=== PATIENT | male | born 1985 | race Caucasian/White ===

== ENCOUNTER 2018-10-19 06:05 | Inpatient (IN) | payer BC, OTHER ==
[2018-10-19] VITALS (33 sets, daily range): BP systolic 97–173; BP diastolic 50–94; PULSE 63–114; RESP 12–29; Ht 165.1 cm; Wt 53.7 kg
[~2018-10-19] VITALS: Ht 165.1 cm; Wt 53.7 kg
[2018-10-19] MEDS ORDERED: THROMBIN (BOVINE) 5,000 UNIT VIAL TP ONE ×3 (06:47→11:08)
[2018-10-19] MEDS ORDERED: BUPIVACAINE 0.5% (SDV) 30 ML INJ ONE (06:47)
[2018-10-19] MEDS ORDERED: LIDOCAINE 1% (MPF) 30 ML INJ ONE (06:47)
[2018-10-19] MEDS ORDERED: GELATIN SIZE 100 SPONGE ONE (06:47)
[2018-10-19] MEDS ORDERED: POLYMYXIN/BACITRACIN 1L IRRIG ONE (06:52)
[2018-10-19] MEDS ORDERED: LIDOCAINE 1%/EPI (1:100,000) (MDV) 20 ML ONE (06:52)
--- NOTE | 2018-10-19 07:18 | PREAC ---
Date/Time of Note Date/Time of Note DATE: 10/19/18 TIME: 07:16 Anesthesia Eval and Record Evaluation Time Pre-Procedure Interview DATE: 10/19/18 TIME: 07:16 Age 33 Sex male NPO: 8 hrs Preoperative diagnosis cervical DDD Planned procedure C3-7 ACDF Past Medical History Past Medical History: Includes GI: Hiatal hernia Recreational drugs: Marijuana (daily use), Other (Home pain meds) Surgery & Anesthesia Issues No known issue Meds Anticoagulation: No Beta Ruma within 24 hr: No Reason Beta Ruma not given: Pt. not on B-Ruma Meds reviewed: Yes Allergies Coded Allergies: tramadol (Verified Allergy, Severe, 10/15/18) pt had sz Sulfa (Sulfonamide Antibiotics) (Verified Allergy, Unknown, 10/15/18) prochlorperazine (Verified Allergy, Unknown, 10/15/18) Allergies Reviewed: Yes Labs/Studies Labs Reviewed: Reviewed by anesthesiologist test: N/A Pre-procedure Exam Last vitals Vital Signs Date Temp Pulse Resp B/P (MAP) Pulse Ox O2 O2 Flow FiO2 Time Delivery Rate 10/19/18 98.5 83 18 113/64 100 06:55 (80) Airway: Adequate mouth opening, Adequate thyromental dist Mallampati: Mallampati II Teeth: Normal Lung: Normal Heart: Normal ASA Physical Status ASA physical status: 3 Emergency: None Planned Anesthetic General/MAC: ETT, A Line Pre-operative Attestations Prior to commencing anesthesia and surgery, the patient was re-evaluated, there was verification of: *The patient's identity *The results of appropriate recent lab work and preoperative vital signs *The above evaluation not changing prior to induction *Anesthetic plan, risk benefits, alternative and complications discussed with patient/family; questions answered; patient/family understands, accepts and wishes to proceed. DEX MÁRQUEZ October 19, 2018 07:18
[2018-10-19] MEDS ORDERED: METOCLOPRAMIDE 10 MG INJ IV PRN (07:30)
[2018-10-19] MEDS ORDERED: ALBUTEROL 0.083% (NEB) 2.5 MG/3 ML AMP HHN PRN (07:30)
[2018-10-19] MEDS ORDERED: ONDANSETRON 4 MG INJ IV PRN ×2 (07:30→14:30)
[2018-10-19] MEDS ORDERED: MEPERIDINE 25 MG INJ IV PRN (07:30)
[2018-10-19] MEDS ORDERED: DESFLURANE 15 MIN ONE (07:30)
[2018-10-19] MEDS ORDERED: FENTAnyl 50 MCG/ML VIAL IV PRN ×2 (07:30)
[2018-10-19] MEDS ORDERED: HYDROmorphONE 1 MG/5 ML IV SYRINGE IV PRN (07:30)
[2018-10-19] MEDS ORDERED: DIPHENHYDRAMINE 50 MG INJ IV PRN (07:30)
[2018-10-19] MEDS ORDERED: MIDAZOLAM 1 MG/ML 2 ML INJ ONE (07:40)
[2018-10-19] MEDS ORDERED: FENTAnyl 50 MCG/ML VIAL ONE ×5 (07:47→13:52)
[2018-10-19] MEDS ORDERED: DEXAMETHASONE 4 MG/ML 5 ML INJ ONE (08:28)
[2018-10-19] MEDS ORDERED: PROPOFOL 20 ML ONE (08:53)
[2018-10-19] MEDS ORDERED: CEFAZOLIN 1 GM INJ ONE ×3 (08:53→12:15)
[2018-10-19] MEDS ORDERED: SUCCINYLCHOLINE CHLORIDE 100 MG/5 ML SYG IV ONE (08:53)
[2018-10-19] MEDS ORDERED: LIDOCAINE 100 MG SYRINGE ONE (08:53)
[2018-10-19] MEDS ORDERED: ROCURONIUM 50 MG INJ ONE (08:53)
[2018-10-19] MEDS ORDERED: SUGAMMADEX SODIUM 200 MG/2 ML VIAL IV ONE (13:34)
[2018-10-19] MEDS: HYDROmorphONE 1 MG/5 ML IV SYRINGE IV PRN ×4 (14:01→14:17)
[2018-10-19] MEDS ORDERED: D5W-0.45 NACL + KCL 20 MEQ 1,000 ML IV SCH (14:11)
[2018-10-19] MEDS ORDERED: BISACODYL 10 MG SUPP PR PRN (14:30)
[2018-10-19] MEDS ORDERED: oxyCODONE 5 MG TAB PO PRN (14:30)
[2018-10-19] MEDS ORDERED: CEFAZOLIN 1 GM/50 ML (PMX) 50 ML IVPB SCH (14:30)
[2018-10-19] MEDS ORDERED: NALOXONE (0.4 MG/ML) INJ IV PRN (14:30)
[2018-10-19] MEDS ORDERED: HYDROmorphONE 1 MG/ML SYG IV ONE (14:30)
[2018-10-19] MEDS: FENTAnyl 50 MCG/ML VIAL IV PRN ×4 (14:42→15:58)
--- NOTE | 2018-10-19 14:54 | OPR ---
Date/Time of Note Date/Time of Note DATE: 10/19/18 TIME: 14:53 Operative Report Procedure Date: October 19, 2018 Preoperative Diagnosis Please see below. Postoperative Diagnosis Please see below. Operation/Procedure Performed Please see below. Surgeon see signature line Artificial Cherry Maker None Anesthesia Type: general Estimated Blood Loss: 10 - 50 ml's (50 cc) Transfusion none Specimen None Grafts/Implants Please see below. Tubes/Drains Please see below. Complications none Pt Condition Post Procedure: stable Disposition: PACU Procedure Description Date of operation: 10/19/2018 Preoperative diagnosis: 1. C4-5, C5-6, C6-7 bilateral foraminal stenosis 2. C4-5, C5-6, C6-7 degenerative disc disease Postoperative diagnosis: 1. C4-5, C5-6, C6-7 bilateral foraminal stenosis 2. C4-5, C5-6, C6-7 degenerative disc disease Operating surgeon: Leida Russell M.D. Procedures performed: 1. C4-5, C5-6, C6-7 anterior cervical discectomy and decompression 2. Placement of intervertebral cages at C4-5, C5-6 and C6-7 levels (Nexxt Spine lordotic titanium 6 mm height cages) 3. C4-C7 anterior instrumentation (Depuy static plate with 14 and 16 mm length screws) 4. C4-C7 anterior arthrodesis 5. Morselized local autologous bone graft harvest 6. Morselized allograft placement (demineralized bone matrix putty) 7. Intraoperative fluoroscopy with professional interpretation 8. Intraoperative microscope with microdissection 9. Intraoperative neurophysiologic monitoring including SSEP, MEP and EMG Indication for procedure: This is a 33-year-old right-handed male with long- standing history of severe axial neck pain and rigidity as well as lateral upper extremity radiating pain and numbness greater on the left than the right in the C5, C6 and C7 distribution. The patient has undergone extensive conservative management including physical therapy as well as pain management. The patient is currently on heavy duty pain medications including [place], Soma and Neurontin without significant improvement of his pain symptomatology. The patient denies gross loss of balance or decreased dexterity of his upper or lower extremities. The risks and benefits of the above operation were again explained and weight detail to the patient, his mother and his daughter who are at bedside in the preoperative area. The patient understands that given his history of heavy duty narcotic medication use, his postoperative pain will be quite challenging and will require further pain medications. The patient will need to follow-up with his pain management physician postoperatively as well. He also understands that even with the above operation his pain symptomatology may still not improve. The risks and benefits of the above operation were also explained again in detail to the patient and his family with the risks including bleeding, infection, weakness, numbness, paralysis, cerebrospinal fluid leak, bowel or bladder dysfunction, dysphagia, hoarseness, injury to the surrounding tissues, failure of improvement of his symptoms are worsening of his symptoms, need for further surgeries including revision of his decompression, instrumented fusion or need for extension of his decompression and instrumented fusion, as well as those risks associated with surgery and general anesthesia including pneumonia, deep venous thrombosis, pulmonary embolism, heart attack and stroke and . The patient and his family fully understood the above discussion and wished to proceed with the above surgery. Description of operative procedure: The patient was brought to the operating room and placed supine on the operating table. After general anesthesia was obtained, roll was placed underneath the patient's shoulders making his neck slightly lordotic. His arms were then tucked by his side and all pressure points were noted and padded appropriately. His shoulders were then taped down. The midline anterior neck was marked. Linear incision approximately at the C5-C6 level was marked over the right anterior cervical region from the mid sternocleidomastoid muscle to midline. After the skin was prepped and draped under standard sterile fashion, local anesthetics were infiltrated into the marked incision. The skin was then incised down to the level of the platysma muscle. The platysma muscle was then sharply opened. The platysmal muscle was then undermined superiorly and inferiorly. The plane medial to the sternocleidomastoid muscle was further developed and dissection was carried down to the precervical fascia. The C5-C6 disc space was then located under direct lateral fluoroscopy and confirmed. The medial borders of the longus coli muscle were undermined. Self-retaining retractors were placed inside. Elizabeth pins were placed at the C5 and C6 vertebral bodies under direct lateral fluoroscopy. The disc space was then gently distracted. The operative microscope was brought into the field. The bilateral uncovertebral joints at C5-C6 were then located. The annulus was then cut open completely. The discectomy was performed. The endplates were fully decorticated. Using a high-speed drill, Kerrison rongeurs and curettes, calcified posterior longitudinal ligament was fully drilled down and removed. The dura was then exposed. The decompression was carried out laterally to the uncovertebral joints bilaterally and the neuroforamina were fully decompressed. The proximal bilateral C6 nerve roots were exposed and fully decompressed. The Microsect curettes were used to probe the plane underneath the superior and inferior C5 and C6 vertebral bodies to make sure that there was no pressure in the spinal canal. Hemostasis was obtained. Using various size trials for the cage, we decided to use a 6 mm lordotic titanium cage. A combination of the locally harvested morselized allograft from the anterior osteophyte and demineralized bone matrix allograft putty was then packed inside the cage. This was then placed in the disc space and countersunk under direct lateral fluoroscopy. The same set of procedures were done in order to access the C6-7 and C4-5 levels 1 level out of time using Elizabeth pins. The Elizabeth pin sites were then waxed after each of the pins were removed. The C4-5 and C6-7 central canal and bilateral neuroforaminal were fully decompressed and the proximal C5 and C7 exiting nerve roots were exposed bilaterally. The endplates were decorticated in a similar fashion to the C5-C6 level. And after using the various trial cages, we decided to use a 6 mm height lordotic titanium cage packed with the same combination of biologic material at these 2 levels as well. The lateral x-ray showed excellent distraction of the disc heights and hoahaoism of the patient's cervical lordosis. The proper sized static anterior plate was then measured under direct lateral fluoroscopy and was then bent to a lordotic shape. The plate was then inserted and using a hand-held drill, ems helicopter pilot holes for the anterior screws was drilled into the each of the vertebral bodies. 14 mm self drilling screws were inserted from C4-C7 under direct lateral fluoroscopy. At 3 of the screw sites, in order to achieve better bony purchase, we decided to exchange the screws with rescue screws that gave us excellent bony purchase. By fully tightening the screws from top to bottom in a serial fashion, we were able to lag the screws onto the plates allowing us to further restore the patient's cervical lordosis under direct lateral fluoroscopy. The locking mechanism at each of the levels over each of the screw heads was then engaged. A final AP and lateral x-ray showed good positioning of the anterior hardware. The wound was copiously irrigated with antibiotic solution. Complete hemostasis was obtained. Size 10 flat drain was inserted in the pretracheal space and the other end of it was brought out of the skin away from the incision site. The platysmal layer was reapproximated with interrupted sutures. The dermal layer was reapproximated with interrupted sutures. The skin was approximated with Dermabond. The drain was secured to the skin with a suture and was connected to a MARCOS bulb and activated. The patient was then woken up, extubated and transported to the recovery room in stable condition. The rigid cervical collar was placed around the patient's neck. Intraoperative neurophysiologic signals were stable throughout the procedure. The patient was moving his upper and lower extremities spontaneously in the recovery room. Estimated blood loss: 50cc Blood products administered: None Packs/drains: Size 10/drain Specimen removed: None Patient's condition: Stable Prognosis: Good Wound classification: Clean Type of anesthesia: General LEIDA RUSSELL MD October 19, 2018 14:54
--- NOTE | 2018-10-19 15:43 | HP ---
Date/Time of Note Date/Time of Note DATE: 10/19/18 TIME: 15:43 Assessment/Plan VTE Prophylaxis Risk score (from Nsg)>0 risk: 5 SCD applied (from Nsg): Yes Pharmacological prophylaxis: other Lines/Catheters IV Catheter Type (from Nrsg): A Line Assessment/Plan Hospital Course Assessment and plan: 30-year-old male status post cervical discectomy and decompression, performed secondary to C-spine pain and disc herniation. #C-spine neck pain: Again secondary to cervical disc herniation, status post C4- 5, C5-6, C6-7 anterior cervical discectomy and decompression. Again patient to see spine collar in place. -Continue physical therapy and pain management per neurosurgery team -We are calling physical therapy as well to see if patient get a better fitting C-spine collar in place. #Marijuana use: Monitor for signs of withdrawal, counseled on cessation # GI ppx -Protonix HPI/ROS Admit Date/Time Admit Date/Time October 19, 2018 at 06:05 Hx of Present Illness 33-year-old male with past medical history of multiple surgeries of his left shoulder, elbow, appendicitis, and prolonged C-spine neck pain with herniated disc,who was brought in for elective surgical procedure of his C-spine. Patient earlier today underwent C4-5, C5-6, C6-7 anterior cervical discectomy and decompression. He presently has a C-spine neck collar in place to help with stabilization. Denies any upper or lower GI bleeding, nausea vomiting, fever chills, diarrhea constipation. He is complaining of some neck pain and appears to be anxious and at times wanting to get out of bed, but is awake and alert. PMH/Family/Social Past Medical History Medications Current Medications Hydromorphone HCl (Dilaudid) 0.2 mg PACU PRN IV MILD PAIN 1-3; Start 10/19/18 at 07:30; Stop 10/19/18 at 17:00 Hydromorphone HCl (Dilaudid) 0.4 mg PACU PRN IV MOD PAIN 4-6 Last administered on 10/19/18at 14:17; Admin Dose 0.4 MG; Start 10/19/18 at 07:30; Stop 10/19/18 at 17:00 Hydromorphone HCl (Dilaudid) 0.6 mg PACU PRN IV SEVERE PAIN 7-10 Last administered on 10/19/18at 14:12; Admin Dose 0.6 MG; Start 10/19/18 at 07:30; Stop 10/19/18 at 17:00 Fentanyl (Sublimaze) 25 mcg PACU ORDER PRN IV MILD PAIN 1-3 Last administered on 10/19/18at 14:47; Admin Dose 25 MCG; Start 10/19/18 at 07:30; Stop 10/19/18 at 17:00 Fentanyl (Sublimaze) 50 mcg PACU ORDER PRN IV MOD PAIN 4-6; Start 10/19/18 at 07:30; Stop 10/19/18 at 17:00 Fentanyl (Sublimaze) 75 mcg PACU ORDER PRN IV SEVERE PAIN 7-10; Start 10/19/18 at 07:30; Stop 10/19/18 at 17:00 Ondansetron HCl (Zofran Inj) 4 mg PACU ORDER PRN IV NAUSEA/VOMITING; Start 10/19/18 at 07:30; Stop 10/19/18 at 17:00 Metoclopramide HCl (Reglan) 10 mg PACU ORDER PRN IV NAUSEA/VOMITING; Start 10/19/18 at 07:30; Stop 10/19/18 at 17:00 Albuterol (Proventil 0.083% (Neb)) 2.5 mg PACU ORDER PRN HHN .WHEEZING; Start 10/19/18 at 07:30; Stop 10/19/18 at 17:00 Meperidine HCl (Demerol) 25 mg PACU ORDER PRN IV .RIGORS Last administered on 10/19/18at 14:02; Admin Dose 25 MG; Start 10/19/18 at 07:30; Stop 10/19/18 at 17:00 Diphenhydramine HCl (Benadryl) 25 mg PACU ORDER PRN IV .PRURITUS Last administered on 10/19/18at 14:34; Admin Dose 25 MG; Start 10/19/18 at 07:30; Stop 10/19/18 at 17:00 Potassium Chloride/Dextrose/ Sod Cl 1,000 ml @ 100 mls/hr Q10H IV ; Start 10/19/18 at 14:11 Oxycodone/ Acetaminophen (Endocet (10/ 325)) 2 tab Q6H PO ; Start 10/19/18 at 14:30 Hydromorphone HCl (Dilaudid) 0.2 mg Q1H PRN IV .BREAKTHROUGH PAIN; Start 10/19/18 at 14:30 Cefazolin Sodium 50 ml @ 100 mls/hr Q8H IVPB Last administered on 10/19/18at 14:51; Admin Dose 100 MLS/HR; Start 10/19/18 at 14:30; Stop 10/20/18 at 06:59 Ondansetron HCl (Zofran Inj) 4 mg Q6H PRN IV NAUSEA/VOMITING; Start 10/19/18 at 14:30 Bisacodyl (Dulcolax Supp) 10 mg DAILY PRN ME .CONSTIPATION; Start 10/19/18 at 14:30 Docusate Sodium (Colace) 100 mg BID PO ; Start 10/19/18 at 21:00 Pantoprazole (Protonix Iv) 40 mg DAILY@06 IV ; Start 10/20/18 at 06:00 Carisoprodol (Soma) 350 mg TID PO ; Start 10/19/18 at 21:00 Naloxone HCl (Narcan) 0.2 mg Q2M PRN IV .RR 8 BREATHS/MIN OR LESS; Start 10/19/18 at 14:30 Oxycodone HCl (Roxicodone) 5 mg Q4H PRN PO MODERATE PAIN LEVEL 4-6; Start 10/19/18 at 14:30 Gabapentin (Neurontin) 300 mg TID PO ; Start 10/19/18 at 21:00 Coded Allergies: tramadol (Verified Allergy, Severe, 10/19/18) pt had sz Sulfa (Sulfonamide Antibiotics) (Verified Allergy, Unknown, 10/19/18) prochlorperazine (Verified Allergy, Unknown, 10/19/18) Past Surgical History Past Surgical Hx: other (Left shoulder, elbow, appendectomy) Social History Alcohol Use: none Smoking Status: Unknown if ever smoked Drug Use: marijuana Exam/Review of Systems Vital Signs Vitals Vital Signs Date Temp Pulse Resp B/P (MAP) Pulse Ox O2 O2 Flow FiO2 Time Delivery Rate 10/19/18 86 16 140/83 100 Nasal 14:28 (102) Cannula 10/19/18 97.7 14:08 10/19/18 6.0 13:58 Exam Exam Gen: Lying in bed with c-collar in place, anxious HEENT: PERRL, no icterus Neck: Again slightly oversized c-collar in place Card: Regular rate and rhythm, no murmurs Pulm: Clear to auscultation bilaterally. Abd: Soft, nontender, nondistended. Ext: No lower exam edema bilaterally Neuro: No focal deficits UNIQUE COOL October 19, 2018 15:43
[2018-10-19] MEDS: OXYCODONE/ACETAMINOPHEN (10/325) TAB PO SCH ×2 (16:08→20:37)
[2018-10-19] MEDS: HYDROmorphONE 0.5 MG/0.5 ML SYG IV PRN ×4 (17:16→20:32)
[2018-10-19] MEDS ORDERED: CARISOPRODOL 350 MG TAB PO SCH ×2 (17:51→21:00)
[2018-10-19] MEDS ORDERED: GABAPENTIN 300 MG CAP PO SCH (21:00)
[2018-10-19] MEDS ORDERED: DOCUSATE SODIUM 100 MG CAP PO SCH (21:00)
--- NOTE | 2018-10-19 22:29 | PN ---
Date/Time of Note Date/Time of Note DATE: 10/19/18 TIME: 22:28 Assessment/Plan Assessment/Plan Date of progress note: 10/19/2018 The patient postoperatively is at his preoperative baseline neurologic status: Moving his upper and lower extremities equally and strongly to command. He has no hoarseness of his voice. He is able to swallow pills and drink some water. His cervical incision is clean dry and intact. The patient is receiving both IV and oral pain medications. The patient is adamant about going home today. He says that he wants to go home to be with his young children. I have spoken to the patient as well as his mother multiple times postoperatively regarding my recommendations and I have highly urged the patient to stay in the hospital overnight as I would highly recommend that the patient be observed for his airway overnight as would be recommended for any anterior cervical spine surgery. In addition, given the patient's preoperative history of long-term use of narcotics, and muscle relaxants and the fact that postoperatively he is requiring IV Dilaudid for breakthrough pain, he will benefit from inpatient care at least overnight. However, the patient has been adamant about leaving the hospital today. I have further explained to him that at the very minimum he needs to be observed in the hospital 8 hours postoperatively which would make it 10:30 PM. At the time of my discussion with the patient, he agreed to stay to 10:30 PM. I also asked the nurses to educate the patient about his MARCOS drain. Furthermore, I explained to the patient that even if he was to leave the hospital tonight that again I highly recommend against, he would need to return to the hospital to have his MARCOS drain removed tomorrow. The patient says that he would be okay with returning to hospital tomorrow for this. Unfortunately, the patient did not even abide by this compromise and when I called his nurse just now to check on his status, I was informed by his nurse that the patient left on his own around 9 PM instead of 11PM as he had earlier agreed to. I was told that he was again adamant about leaving the hospital. It was also not clear whether the patient had a ride by family member or not. The patient was also fitted with a new [place] collar postoperatively. LEIDA RUSSELL MD October 19, 2018 22:29
[2018-10-20] MEDS ORDERED: PANTOPRAZOLE 40 MG INJ IV SCH (06:00)
--- NOTE | 2018-10-20 07:43 | PAC ---
Date/Time of Note Date/Time of Note DATE: 10/20/18 TIME: 07:43 Post-Anesthesia Notes Post-Anesthesia Note Last documented vital signs Vital Signs Date Temp Pulse Resp B/P (MAP) Pulse Ox O2 O2 Flow FiO2 Time Delivery Rate 10/19/18 98.1 76 18 127/69 98 20:20 (88) 10/19/18 Room Air 17:45 10/19/18 6.0 13:58 Activity: WNL Respiratory function: WNL Cardiovascular function: WNL Mental status: Baseline Pain reasonably controlled: Yes Hydration appropriate: Yes Nausea/Vomiting absent: Yes DEX MÁRQUEZ October 20, 2018 07:43
== END 2018-10-19 21:30 | disposition home or self-care (01) | DRG 473 ==
LOC: REC 06:05 → EDSEX 07:30 → MS1 17:00
PROVIDERS: ADMIT Neurological Surgery; ATTEND Hospitalist
PROC: 0RB30ZZ Excision of Cervical Vertebral Disc, Open Approach (ICD-10-PCS; 2018-10-19)
PROC: 4A11X4G Monitoring of Peripheral Nervous Electrical Activity, Intraoperative, External Approach (ICD-10-PCS; 2018-10-19)
PROC: 0RG2070 Fusion of 2 or more Cervical Vertebral Joints with Autologous Tissue Substitute, Anterior Approach, Anterior Column, Open Approach (ICD-10-PCS; principal; 2018-10-19 07:30)
DX: M50.320 Other cervical disc degeneration, mid-cervical region, unspecified level (principal); M48.02 Spinal stenosis, cervical region
CPT/HCPCS: 72050; 86850; 86900; 86901; 87086; 97162; C9113; J0690; J1100; J1170; J1200; J2001; J2175; J2250; J2405; J3010; J3480